=== PATIENT | male | born 1950 | race Caucasian/White ===

== ENCOUNTER 2016-03-29 15:51 | Outpatient (CLI) | payer BC, OTHER | END 2016-03-29 15:52 | disposition home or self-care (01) | DX: Z00.00 Encounter for general adult medical examination without abnormal findings (principal); Z12.5 Encounter for screening for malignant neoplasm of prostate ==

== ENCOUNTER 2016-06-05 10:09 | Outpatient (CLI) | payer BC, OTHER | END 2016-06-05 10:10 | disposition home or self-care (01) | DX: K57.92 Diverticulitis of intestine, part unspecified, without perforation or abscess without bleeding (principal) ==

== ENCOUNTER 2016-11-07 08:00 | Outpatient (CLI) | payer BC, OTHER ==
[2016-11-07 14:04] LABS: BASOPHILS % (AUTO) 0.2 %; EOSINOPHILS % (AUTO) 1.6 %; HCT - HEMATOCRIT 43.1 % (42.0-52.0); HGB - HEMOGLOBIN 14.4 g/dL (14.0-18.0); LYMPHOCYTES % (AUTO) 61.8 %; MEAN CORPUSCULAR HEMOGLOBIN 30.9 pg (27.0-31.0); MEAN CORPUSCULAR HGB CONC 33.5 g/dL (32.0-36.0); MEAN CORPUSCULAR VOLUME 92.3 fL (80.0-94.0); MONOCYTES % (AUTO) 5.5 %; NEUTROPHILS % (AUTO) 30.9 %; RED BLOOD COUNT 4.67 10^6/uL (4.70-6.10); RED CELL DISTRIBUTION WIDTH 13.9 % (12.0-15.0); UNCORRECTED WHITE BLOOD COUNT 15.4 x10^3/uL; WHITE BLOOD COUNT 15.4 x10^3/uL (4.8-10.8)
[2016-11-07 14:19] LABS: BAND NEUTROPHILS % (MANUAL) 0 %
[2016-11-07 14:21] LABS: EOSINOPHILS % (MANUAL) 2 %; LYMPHOCYTES % (MANUAL) 45 %; NEUTROPHILS % (MANUAL) 26 %; TOTAL CELLS COUNTED 100
[2016-11-07 14:22] LABS: NP AUTO DIFFERENTIAL? YES; NP MAN DIFFERENTIAL? NO; PLATELET ESTIMATE, MANUAL NORMAL (130-450,000) (NORMAL); PLATELET MORPHOLOGY NORMAL APPEARANCE (NORMAL)
[2016-11-07 14:27] LABS: ALBUMIN/GLOBULIN RATIO 1.6 (1.0-2.2); BILIRUBIN,TOTAL 0.7 mg/dL (0.2-1.0); CALCIUM 8.7 mg/dL (8.5-10.3); CREATININE 1.3 mg/dL (0.6-1.2); POTASSIUM 3.6 mmol/L (3.5-5.0); TOTAL PROTEIN 6.6 g/dL (6.7-8.2)
== END 2016-11-07 08:01 | disposition home or self-care (01) ==
LOC: LAB.WCP 08:00
PROVIDERS: ATTEND Specialist
DX: C91.10 Chronic lymphocytic leukemia of B-cell type not having achieved remission (principal)
CPT/HCPCS: 36415; 80053; 84443; 85025

== ENCOUNTER 2016-12-27 09:53 | Outpatient (CLI) | payer OTHER ==
[2016-12-28 09:39] LABS: BASOPHILS % (AUTO) 0.4 %; EOSINOPHILS % (AUTO) 1.5 %; HCT - HEMATOCRIT 43.8 % (42.0-52.0); HGB - HEMOGLOBIN 14.6 g/dL (14.0-18.0); LYMPHOCYTES % (AUTO) 68.4 %; MEAN CORPUSCULAR HEMOGLOBIN 31.4 pg (27.0-31.0); MEAN CORPUSCULAR HGB CONC 33.4 g/dL (32.0-36.0); MEAN CORPUSCULAR VOLUME 94.2 fL (80.0-94.0); MEAN PLATELET VOLUME 8.6 fL (7.4-11.4); MONOCYTES % (AUTO) 4.9 %; NEUTROPHILS % (AUTO) 24.8 %; RED BLOOD COUNT 4.65 10^6/uL (4.70-6.10); UNCORRECTED WHITE BLOOD COUNT 17.2 x10^3/uL; WHITE BLOOD COUNT 17.2 x10^3/uL (4.8-10.8)
[2016-12-28 09:41] LABS: BILIRUBIN,TOTAL 0.7 mg/dL (0.2-1.0); CALCIUM 8.7 mg/dL (8.5-10.3); POTASSIUM 4.5 mmol/L (3.5-5.0); TOTAL PROTEIN 6.8 g/dL (6.7-8.2)
[2016-12-28 10:09] LABS: BAND NEUTROPHILS % (MANUAL) 0 %
[2016-12-28 10:11] LABS: EOSINOPHILS % (MANUAL) 1 %; LYMPHOCYTES % (MANUAL) 59 %; NEUTROPHILS % (MANUAL) 36 %; PLATELET ESTIMATE, MANUAL NORMAL (130-450,000) (NORMAL)
[2016-12-28 10:12] LABS: WBC MORPHOLOGY (MULTIPLE) 2+ SMUDGE (NORMAL)
[2016-12-28 10:13] LABS: NP AUTO DIFFERENTIAL? YES; NP MAN DIFFERENTIAL? NO
[2016-12-28 10:38] LABS: ALBUMIN/GLOBULIN RATIO 1.7 (1.0-2.2); CREATININE 1.4 mg/dL (0.6-1.2)
== END 2016-12-27 09:54 | disposition home or self-care (01) ==
LOC: LAB.WCP 09:53
PROVIDERS: ATTEND Specialist
DX: C91.10 Chronic lymphocytic leukemia of B-cell type not having achieved remission (principal)
CPT/HCPCS: 36415; 80053; 85025

== ENCOUNTER 2017-02-21 08:00 | Outpatient (CLI) | payer OTHER | END 2017-02-21 08:01 | disposition home or self-care (01) | LOC: LAB.WCP 08:00 | PROVIDERS: ATTEND Family Medicine | DX: R19.7 Diarrhea, unspecified (principal) | CPT/HCPCS: 81599; 83630; 87045; 87046; 87177; 87209; 87329; 87493 ==

== ENCOUNTER 2017-03-19 14:45 | Outpatient (CLI) | payer OTHER ==
[2017-03-19 19:12] LABS: BASOPHILS % (AUTO) 0.2 %; EOSINOPHILS % (AUTO) 0.9 %; HGB - HEMOGLOBIN 14.5 g/dL (14.0-18.0); LYMPHOCYTES % (AUTO) 69.1 %; MEAN CORPUSCULAR HEMOGLOBIN 30.9 pg (27.0-31.0); MEAN CORPUSCULAR HGB CONC 32.6 g/dL (32.0-36.0); MEAN CORPUSCULAR VOLUME 94.8 fL (80.0-94.0); MEAN PLATELET VOLUME 8.4 fL (7.4-11.4); MONOCYTES % (AUTO) 3.7 %; NEUTROPHILS % (AUTO) 26.1 %; PLT - PLATELET COUNT 215 10^3/uL (130-450); RED BLOOD COUNT 4.69 10^6/uL (4.70-6.10); RED CELL DISTRIBUTION WIDTH 13.7 % (12.0-15.0); WHITE BLOOD COUNT 22.8 x10^3/uL (4.8-10.8)
[2017-03-19 19:31] LABS: ALBUMIN 4.6 g/dL (3.2-5.5); ALBUMIN/GLOBULIN RATIO 1.6 (1.0-2.2); BILIRUBIN,TOTAL 0.7 mg/dL (0.2-1.0); CALCIUM 8.9 mg/dL (8.5-10.3); CREATININE 1.5 mg/dL (0.6-1.2); TOTAL PROTEIN 7.5 g/dL (6.7-8.2)
[2017-03-19 21:57] LABS: ABNORMAL LYMPHS % (MANUAL) 0 %
[2017-03-19 22:02] LABS: BAND NEUTROPHILS % (MANUAL) 2 %; EOSINOPHILS # (MANUAL) 0.7 10^3/uL (0-0.7); LYMPHOCYTES % (MANUAL) 26 %; MONOCYTES # (MANUAL) 0.7 10^3/uL (0.0-1.0); MYELOCYTES % (MANUAL) 2 %; NEUTROPHILS % (MANUAL) 33 %
[2017-03-19 22:03] LABS: PLATELET ESTIMATE, MANUAL NORMAL (130-450,000) (NORMAL); PLATELET MORPHOLOGY NORMAL APPEARANCE (NORMAL); RBC MORPHOLOGY (MULTIPLE) NORMAL APPEARANCE (NORMAL)
== END 2017-03-19 14:46 | disposition home or self-care (01) ==
LOC: LAB.WCP 14:45
PROVIDERS: ATTEND Specialist
DX: C91.10 Chronic lymphocytic leukemia of B-cell type not having achieved remission (principal)
CPT/HCPCS: 36415; 80053; 85025

== ENCOUNTER 2017-07-16 08:00 | Outpatient (CLI) | payer MEDICARE, OTHER ==
[2017-07-16 12:14] LABS: BASOPHILS % (AUTO) 0.3 %; EOSINOPHILS % (AUTO) 0.8 %; HGB - HEMOGLOBIN 13.7 g/dL (14.0-18.0); LYMPHOCYTES % (AUTO) 76.1 %; MEAN CORPUSCULAR HEMOGLOBIN 31.4 pg (27.0-31.0); MEAN CORPUSCULAR HGB CONC 33.6 g/dL (32.0-36.0); MEAN CORPUSCULAR VOLUME 93.3 fL (80.0-94.0); MONOCYTES % (AUTO) 3.3 %; NEUTROPHILS % (AUTO) 19.5 %; PLT - PLATELET COUNT 202 10^3/uL (130-450); RED BLOOD COUNT 4.38 10^6/uL (4.70-6.10); WHITE BLOOD COUNT 27.2 x10^3/uL (4.8-10.8)
[2017-07-16 12:29] LABS: BAND NEUTROPHILS % (MANUAL) 0 %
[2017-07-16 12:46] LABS: ABNORMAL LYMPHS % (MANUAL) 4 %; BASOPHILS # (MANUAL) 0.3 10^3/uL (0-0.1); BASOPHILS % (MANUAL) 1 %; LYMPHOCYTES # (MANUAL) 22.3 10^3/uL (1.5-3.5); LYMPHOCYTES % (MANUAL) 78 %; MONOCYTES # (MANUAL) 1.1 10^3/uL (0.0-1.0); NEUTROPHILS # (MANUAL) 3.5 10^3/uL (1.5-6.6); NEUTROPHILS % (MANUAL) 13 %
[2017-07-16 12:47] LABS: DIFFERENTIAL COMMENT MANUAL DIFFERENTIAL; PLATELET ESTIMATE, MANUAL NORMAL (130-450,000) (NORMAL); PLATELET MORPHOLOGY NORMAL APPEARANCE (NORMAL); RBC MORPHOLOGY (MULTIPLE) NORMAL APPEARANCE (NORMAL)
== END 2017-07-16 08:01 | disposition home or self-care (01) ==
LOC: LAB.WCP 08:00
PROVIDERS: ATTEND Nurse Practitioner Gerontology
DX: C91.10 Chronic lymphocytic leukemia of B-cell type not having achieved remission (principal)
CPT/HCPCS: 36415; 85025

== ENCOUNTER 2017-10-02 09:54 | Outpatient (CLI) | payer MEDICARE, OTHER ==
--- NOTE | 2017-10-02 11:28 | XRAY Report ---
Procedure Date: 10/02/2017 Accession Number: [id number] / [id number] Procedure: XR - Knee 3 View BILAT CPT Code: FULL RESULT: EXAM: Knee 3 View BILAT DATE: 10/02/2017 10:15 AM CLINICAL HISTORY: KNEE PAIN, BILATERAL COMPARISON: None. TECHNIQUE: 3 views each. FINDINGS: RIGHT KNEE: Bones: Normal. No fractures or bone lesions. Joints: Degenerative changes including joint space loss in the medial femoral tibial compartment, mild to moderate. No joint effusion. Soft Tissues: Normal. No soft tissue swelling. LEFT KNEE: Bones: Normal. No fractures or bone lesions. Joints: Degenerative changes including joint space narrowing predominantly in the medial femoral tibial compartment, [id number]. No joint effusion. Soft Tissues: Normal. No soft tissue swelling. IMPRESSION: Bilateral degenerative changes with a medial femorotibial compartment predominant pattern. Mild to moderate. RADIA
== END 2017-10-02 09:55 | disposition home or self-care (01) ==
LOC: DI 09:54
PROVIDERS: ATTEND Family Medicine
DX: M17.0 Bilateral primary osteoarthritis of knee (principal)

== ENCOUNTER 2017-12-23 10:03 | Outpatient (CLI) | payer MEDICARE, OTHER ==
[2017-12-23 14:13] LABS: BASOPHILS % (AUTO) 0.2 %; EOSINOPHILS % (AUTO) 0.8 %; HGB - HEMOGLOBIN 14.7 g/dL (14.0-18.0); LYMPHOCYTES % (AUTO) 81.5 %; MEAN CORPUSCULAR HEMOGLOBIN 31.7 pg (27.0-31.0); MEAN CORPUSCULAR HGB CONC 33.7 g/dL (32.0-36.0); MEAN CORPUSCULAR VOLUME 94.3 fL (80.0-94.0); MONOCYTES % (AUTO) 2.8 %; NEUTROPHILS % (AUTO) 14.7 %; PLT - PLATELET COUNT 192 10^3/uL (130-450); RED BLOOD COUNT 4.62 10^6/uL (4.70-6.10); RED CELL DISTRIBUTION WIDTH 13.9 % (12.0-15.0); WHITE BLOOD COUNT 34.7 x10^3/uL (4.8-10.8)
[2017-12-23 14:20] LABS: ABNORMAL LYMPHS % (MANUAL) 0 %
[2017-12-23 15:21] LABS: ALBUMIN 4.3 g/dL (3.2-5.5); ALBUMIN/GLOBULIN RATIO 1.6 (1.0-2.2); BILIRUBIN,TOTAL 0.2 mg/dL (0.2-1.0); CREATININE 1.5 mg/dL (0.6-1.2)
[2017-12-23 15:41] LABS: BAND NEUTROPHILS % (MANUAL) 1 %; DIFFERENTIAL COMMENT MANUAL DIFFERENTIAL; LYMPHOCYTES # (MANUAL) 28.5 10^3/uL (1.5-3.5); LYMPHOCYTES % (MANUAL) 71 %; MONOCYTES # (MANUAL) 0.3 10^3/uL (0.0-1.0); NEUTROPHILS # (MANUAL) 5.9 10^3/uL (1.5-6.6); NEUTROPHILS % (MANUAL) 16 %; PLATELET ESTIMATE, MANUAL NORMAL (130-450,000) (NORMAL); PLATELET MORPHOLOGY NORMAL APPEARANCE (NORMAL); RBC MORPHOLOGY (MULTIPLE) NORMAL APPEARANCE (NORMAL)
== END 2017-12-23 10:04 | disposition home or self-care (01) ==
LOC: LAB.WCP 10:03
PROVIDERS: ATTEND Internal Medicine Hematology & Oncology
DX: C91.10 Chronic lymphocytic leukemia of B-cell type not having achieved remission (principal)
CPT/HCPCS: 36415; 80053; 83615; 85025

== ENCOUNTER 2018-04-10 15:03 | Outpatient (CLI) | payer MEDICARE, OTHER ==
[2018-04-10 18:47] LABS: BASOPHILS % (AUTO) 0.1 %; EOSINOPHILS % (AUTO) 0.7 %; HGB - HEMOGLOBIN 15.2 g/dL (14.0-18.0); LYMPHOCYTES % (AUTO) 82.8 %; MEAN CORPUSCULAR HEMOGLOBIN 30.8 pg (27.0-31.0); MEAN CORPUSCULAR HGB CONC 32.2 g/dL (32.0-36.0); MEAN CORPUSCULAR VOLUME 95.5 fL (80.0-94.0); MEAN PLATELET VOLUME 8.3 fL (7.4-11.4); MONOCYTES % (AUTO) 2.8 %; NEUTROPHILS % (AUTO) 13.6 %; PLT - PLATELET COUNT 211 10^3/uL (130-450); RED BLOOD COUNT 4.95 10^6/uL (4.70-6.10); RED CELL DISTRIBUTION WIDTH 13.4 % (12.0-15.0)
[2018-04-10 19:04] LABS: ALBUMIN 4.1 g/dL (3.2-5.5); ALBUMIN/GLOBULIN RATIO 1.5 (1.0-2.2); BILIRUBIN,TOTAL 0.7 mg/dL (0.2-1.0); CALCIUM 9.1 mg/dL (8.5-10.3); CREATININE 1.3 mg/dL (0.6-1.2); TOTAL PROTEIN 6.9 g/dL (6.7-8.2)
[2018-04-10 20:43] LABS: ABNORMAL LYMPHS % (MANUAL) 0 %; BAND NEUTROPHILS % (MANUAL) 0 %
[2018-04-10 20:44] LABS: DIFFERENTIAL COMMENT MANUAL DIFFERENTIAL; LYMPHOCYTES # (MANUAL) 32.1 10^3/uL (1.5-3.5); LYMPHOCYTES % (MANUAL) 83 %; MONOCYTES # (MANUAL) 0.8 10^3/uL (0.0-1.0); NEUTROPHILS # (MANUAL) 5.8 10^3/uL (1.5-6.6); NEUTROPHILS % (MANUAL) 15 %; PLATELET ESTIMATE, MANUAL NORMAL (130-450,000) (NORMAL); PLATELET MORPHOLOGY NORMAL APPEARANCE (NORMAL); RBC MORPHOLOGY (MULTIPLE) NORMAL APPEARANCE (NORMAL)
[2018-04-11 09:57] LABS: WHITE BLOOD COUNT 38.7 x10^3/uL (4.8-10.8)
== END 2018-04-10 23:59 | disposition home or self-care (01) ==
LOC: LAB.WCP 15:03
DX: C91.10 Chronic lymphocytic leukemia of B-cell type not having achieved remission (principal)
CPT/HCPCS: 36415; 80053; 83615; 85025

== ENCOUNTER 2019-01-05 17:16 | Outpatient (CLI) | payer OTHER, MEDICARE ==
--- NOTE | 2019-01-06 09:53 | MRI Report ---
Reason: TRIGGER LITTLE FINGER OF RT HAND, HAND PAIN Procedure Date: 01/05/2019 Accession Number: [id number] / [id number] Procedure: MRI - Hand RT W/O CPT Code: Final Report FULL RESULT: EXAM: RIGHT HAND FIFTH DIGIT MR WITHOUT CONTRAST EXAM DATE: 01/05/2019 06:09 PM. CLINICAL HISTORY: Trigger finger of the right hand little finger. Hand pain. COMPARISON: None. TECHNIQUE: Multiplanar, multisequence T1-weighted and fluid-sensitive sequences of the finger without contrast. Other: None. FINDINGS: Bones: No fractures or subluxations. No marrow edema. No bone lesions. Cartilage: The articular cartilage is unremarkable. Ligaments: The radial and ulnar collateral ligaments are intact. Tendons: The flexor and extensor tendons are unremarkable. The visualized pulleys are intact. Musculature: No edema or fatty atrophy. Other: No joint effusions or capsular rupture. The subcutaneous tissues are unremarkable. IMPRESSION: No MRI abnormalities in the finger. RADIA
== END 2019-01-05 17:17 | disposition home or self-care (01) ==
LOC: DI 17:16
PROVIDERS: ATTEND Orthopaedic Surgery
DX: M65.351 Trigger finger, right little finger (principal)

== ENCOUNTER 2020-05-30 07:00 | Outpatient (CLI) | payer MEDICARE ==
--- OUTSIDE RECORDS SUMMARY | 2020-06-07 21:57 | EXTERNAL MEDICAL SUMMARY RPT | Continuity of Care Document ---
:1950 Demographics Phone Unavailable Preferred Language German Marital Status Unknown Shinto Affiliation Unknown Race Unknown Ethnic Group Unknown Author Organization [place] Address [address] [phone] Phone Care Team Providers Name Role Phone Scheidt Unavailable Unavailable Problems date description facility [id number] Chronic lymphocytic leukemia of B-cell type not having [facility] [id number] Chronic lymphocytic leukemia of B-cell type not having [facility] Social History date description facility [id number]
== END 2020-05-30 23:59 | disposition home or self-care (01) ==
LOC: LAB.N 07:00
PROVIDERS: ATTEND Family Medicine
DX: R05 Cough (principal); Z20.822 Contact with and (suspected) exposure to COVID-19
CPT/HCPCS: 87275; 87276; U0004

== ENCOUNTER 2020-06-10 08:00 | Outpatient (CLI) | payer MEDICARE ==
[2020-06-10 11:53] LABS: EOSINOPHILS % (AUTO) 0.1 %; HCT - HEMATOCRIT 44.5 % (42.0-52.0); HGB - HEMOGLOBIN 13.2 g/dL (14.0-18.0); LYMPHOCYTES % (AUTO) 94.4 %; MEAN CORPUSCULAR HGB CONC 29.7 g/dL (32.0-36.0); MEAN CORPUSCULAR VOLUME 104.5 fL (80.0-94.0); MEAN PLATELET VOLUME 9.9 fL (7.4-11.4); MONOCYTES % (AUTO) 3.3 %; PLT - PLATELET COUNT 192 10^3/uL (130-450); RED BLOOD COUNT 4.26 10^6/uL (4.70-6.10); RED CELL DISTRIBUTION WIDTH 14.5 % (12.0-15.0)
[2020-06-10 12:13] LABS: WHITE BLOOD COUNT 153.5 x10^3/uL (4.8-10.8)
[2020-06-10 12:15] LABS: ABNORMAL LYMPHS % (MANUAL) 0 %; BAND NEUTROPHILS % (MANUAL) 0 %
[2020-06-10 12:29] LABS: LYMPHOCYTES # (MANUAL) 141.2 10^3/uL (1.5-3.5); LYMPHOCYTES % (MANUAL) 92 %; MONOCYTES # (MANUAL) 4.6 10^3/uL (0.0-1.0); NEUTROPHILS # (MANUAL) 7.7 10^3/uL (1.5-6.6)
[2020-06-10 12:30] LABS: DIFFERENTIAL COMMENT MANUAL DIFFERENTIAL; PLATELET ESTIMATE, MANUAL NORMAL (130-450,000) (NORMAL); PLATELET MORPHOLOGY NORMAL APPEARANCE (NORMAL); RBC MORPHOLOGY (MULTIPLE) 1+ MACROCYTOSIS (NORMAL)
[2020-06-10 13:26] LABS: ALBUMIN 4.2 g/dL (3.2-5.5); ALBUMIN/GLOBULIN RATIO 1.9 (1.0-2.2); ALKALINE PHOSPHATASE 110 IU/L (42-121); ALT ALANINE AMINOTRANSFERASE 24 IU/L (10-60); AST ASPARTATE AMINOTRANSFERASE 24 IU/L (10-42); BILIRUBIN,TOTAL 0.5 mg/dL (0.2-1.0); BUN - BLOOD UREA NITROGEN 23 mg/dL (6-20); CALCIUM 8.9 mg/dL (8.5-10.3); CARBON DIOXIDE - CO2 27 mmol/L (21-32); CHLORIDE 108 mmol/L (101-111); CHOL/HDL RATIO 5.2 (<5.0); CHOLESTEROL 151 mg/dL; CREATININE 1.5 mg/dL (0.6-1.2); GFR - MDRD 47 (>89); GLUCOSE 97 mg/dL (70-100); HDL CHOLESTEROL 29 mg/dL; LDL CHOLESTEROL,CALCULATED 98 mg/dL; LDL/HDL RATIO 3.4 (<3.6); POTASSIUM 4.2 mmol/L (3.5-5.0); SODIUM 143 mmol/L (135-145); TOTAL PROTEIN 6.4 g/dL (6.7-8.2); TRIGLYCERIDES 119 mg/dL; URIC ACID 8.7 mg/dL (2.6-7.2); VLDL CHOLESTEROL 24 mg/dL
== END 2020-06-10 23:59 | disposition home or self-care (01) ==
LOC: LAB.WCP 08:00
PROVIDERS: ATTEND Family Medicine
DX: I10 Essential (primary) hypertension (principal); N41.9 Inflammatory disease of prostate, unspecified; M10.9 Gout, unspecified; C91.00 Acute lymphoblastic leukemia not having achieved remission
CPT/HCPCS: 36415; 80053; 80061; 83721; 84153; 84550; 85025

== ENCOUNTER 2020-11-03 13:50 | Outpatient (CLI) | payer MEDICARE | END 2020-11-03 13:51 | disposition home or self-care (01) | LOC: COV 13:50 | PROVIDERS: ATTEND Family Medicine | DX: Z20.822 Contact with and (suspected) exposure to COVID-19 (principal) ==

== ENCOUNTER 2021-08-07 08:00 | Outpatient (CLI) | payer MEDICARE ==
--- NOTE | 2021-08-08 15:19 | XRAY Report ---
PROCEDURE: Chest 2 View X-Ray INDICATIONS: PERSISTENT COUGH TECHNIQUE: 2 view(s) of the chest. COMPARISON: None. FINDINGS: Surgical changes and devices: None. Lungs and pleura: No pleural effusions or pneumothorax. Lungs are clear. Mediastinum: Mediastinal contours are normal. Heart size is normal. Bones and chest wall: No suspicious bony abnormalities. Soft tissues appear unremarkable. IMPRESSION: No acute cardiopulmonary findings. Reviewed by: Lisa Armenta MD on 08/08/2021 3:17 PM PDT Approved by: Lisa Armenta MD on 08/08/2021 3:17 PM PDT Station ID: [id number]
== END 2021-08-07 23:59 | disposition home or self-care (01) ==
LOC: DI.N 08:00
PROVIDERS: ATTEND Physician Assistant
DX: R05.2 Subacute cough (principal)

== ENCOUNTER 2021-12-18 08:08 | Outpatient (CLI) | payer MEDICARE ==
--- NOTE | 2021-12-18 17:25 | XRAY Report ---
PROCEDURE: Ribs w/PA Chest LT INDICATIONS: RIB PAIN, LEFT SIDED TECHNIQUE: 3 views of the left ribs were acquired, along with a single view chest. COMPARISON: 08/07/2021 chest films FINDINGS: Surgical changes and devices: None. Bones and chest wall: No fractures or dislocations. No suspicious bony lesions. Overlying soft tis sues appear unremarkable. Lungs and pleura: No pleural effusions or pneumothorax. Lungs appear clear. Mediastinum: Mediastinal contours appear normal. Heart size is normal. IMPRESSION: No evidence of displaced left rib fracture. No evidence of acute pulmonary process. Reviewed by: Johnnie Sheehan MD on 12/18/2021 5:23 PM PDT Approved by: Johnnie Sheehan MD on 12/18/2021 5:23 PM PDT Station ID: [id number]
== END 2021-12-18 08:09 | disposition home or self-care (01) ==
LOC: DI.N 08:08
PROVIDERS: ATTEND Internal Medicine
DX: R07.81 Pleurodynia (principal); I10 Essential (primary) hypertension; Z13.220 Encounter for screening for lipoid disorders; F32.A Depression, unspecified; M10.9 Gout, unspecified
CPT/HCPCS: 36415; 80053; 80061; 83721; 84443; 84550; 85025

== ENCOUNTER 2023-05-14 15:39 | Outpatient (CLI) | payer MEDICARE ==
--- NOTE | 2023-05-14 16:05 | Sleep Patient Instructions ---
Sleep Center Visit Summary - Patient Visit Information Reason for Visit: Initial consult for evaluation of sleep disordered breathing and other sleep issues. - Patient Instructions Instructions Attached: Sleep Study Additional Instructions: You will be completing a sleep study, either an in-lab polysomnography (PSG) or home sleep study (HST). You will follow-up in the sleep care office after the sleep study is completed to hear the results and talk about therapy, if needed. You will be called by our office staff to schedule this appointment, but you may contact us with any questions. - Clinic Information Contact: Merged with [facility] [address] [place] [address] [email or web address] T: [phone]
--- NOTE | 2023-05-14 16:13 | SLEEP CARE CONSULTATION ---
Information from patient questionnaire entered by Krystyna Mcleod. I have reviewed and concur with the information entered by Krystyna Mcleod. This document represents the service I personally performed and the decisions made by me, Delores Kenny ARNP. History of Present Illness Service Date and Time: 05/14/2023 1539 Reason for Visit: New patient Chief Complaint: reports: Snoring Date of Onset: for long time Usual bedtime: 9PM Time it takes to fall asleep: 5-10 minutes Snores at night: Yes Observed to quit breathing while asleep: No Sleeps alone due to snoring: Yes Number of times waking at night: 1 Reasons for waking at night: reports: Snoring, Bathroom. denies: Choking, Gasping for air Toss, Turn, or Twitch while sleeping: Yes Recalls having dreams: Yes Usually gets out of bed at: 6AM Feels refreshed in the morning: Yes Morning headache: No Sleepy or fatigued during the day: Yes Ever fallen asleep while driving: No Takes day naps: No Dreams during day naps: No Prior sleep studies: Yes Year and Where: 1995 [place], formerly [facility] Additional HPI information: I had the pleasure of seeing SLICK ASHLEY today regarding the possibility of him having a sleep disorder. His current complaint is snoring. He says his complains of snoring that disrupts her sleep. She will seep separate because of the snoring as well. She has never told him he stopped breathing at night. He says he wakes up feeling rested overall. He does have some fatigue during the daytime but he does have a diagnosis of CLL. He has been more tired since he has been dealing with cancer and its treatments. 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 He goes to sleep without a problem and only wakes up once to use the bathroom during the night. 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 Patient is and lives in [place]. Have you smoked in the past 12 months: No Alcohol use: Yes Alcohol amount and frequency: SOCIAL Caffeine use: Yes Caffeine amount and frequency: 12OZ Family History Family history of sleep disordered breathing: Yes Family Hx Sleep Apnea: Father: Snoring, Grandparent: Snoring Allergies and Home Medications Known drug allergies: Yes (as listed) Drug allergies reviewed: Yes Home medication list reviewed: Yes (as listed) Allergy and home medication list: Allergies Penicillins Allergy (Severe, Verified 05/10/23 14:01) anaph. anaphylaxis. codeine Allergy (Verified 05/10/23 14:01) Nausea Home Medications Medication Instructions Recorded Confirmed Last Taken Type Tamsulosin [Flomax] See Rx Instructions .ROUTE .COMPLEX 09/08/13 05/14/23 09/07/13 20:00 History Losartan Potassium See Rx Instructions .ROUTE .COMPLEX 05/14/23 05/14/23 Unknown History Zanubrutinib [Brukinsa] See Rx Instructions .ROUTE .COMPLEX 05/14/23 05/14/23 Unknown History allopurinoL [Zyloprim] See Rx Instructions .ROUTE .COMPLEX 05/14/23 05/14/23 Unknown History buPROPion HCL [Wellbutrin Xl] See Rx Instructions .ROUTE .COMPLEX 05/14/23 05/14/23 Unknown History Review of Systems Weight gain over past 5 years: 10-15 Cardiovascular: reports: high blood pressure Gastrointestinal: reports: heartburn Urinary: reports: impotence Neurological: denies: headaches Psychiatric: reports: depression Ear/Nose/Throat: reports: tonsillectomy (took uvula too), wisdom teeth removed Endocrine: denies: thyroid disease Musculoskeletal: reports: joint pain, muscle pain or cramping Physical Exam Vital signs obtained and entered by: KRYSTYNA Willis MA Blood Pressure: 139/88 (RIGHT ARM) Cuff size: regular Heart Rate: 79 O2 Saturation: 95 Height: 5 ft 8 in Weight: 227 lb 6.4 oz Body Mass Index: 34.5 BMI Classification: Obese Neck circumference: 18 Mouth and throat: narrow oropharynx Soft palate: long Hard palate: normal Uvula visualization: 0% Mallampati Class IV Tongue: enlarged in size with teeth palma on lateral edges Tonsils: absent bilaterally Heart: regular rate and rhythm Lungs: clear bilaterally Impression and Plan 1. Suspected Obstructive Sleep Apnea-Hypopnea Syndrome, as suggested by a history of loud and irregular snoring. He has a history of hypertension, depression and gastric reflux. Narrow oropharynx and obesity are common predisposing factors for obstructive sleep apnea-hypopnea syndrome. I recommend proceeding to polysomnography to confirm the diagnosis and to assess severity. If the patient has significant sleep disordered breathing, a manual CPAP titration study will also be performed to find the optimal treatment pressure. I informed the patient of what the sleep studies involve and after some discussion, obtained agreement to proceed. The pathophysiology of obstructive sleep apnea-hypopnea syndrome was discussed with the patient and health risks of cardiovascular and cerebrovascular disease if not treated. Risks of drowsy driving discussed in detail and patient advised to avoid long distance driving and to pulley worker at the first sign of drowsiness. Patient agreed to plan. * Schedule polysomnography * Avoid long distance driving or driving when feeling sleepy. * Avoid alcohol, sedative and muscle relaxant around bedtime. * Attempt to lose weight. * Review instructions provided by trained office staff on how to prepare for the sleep study. * Return for follow-up after sleep study completed. Counseling Topics: Weight loss health impact Plan: PSG Visit Type: In Office Time Spent with Patient (minutes): 30 Provider Statement: I spent 100% of the Face to Face Visit with the patient with greater than 50% spent counseling the patient and coordination of care.
[2023-05-14 16:22] VITALS: BP 139/88; O2SAT 95
== END 2023-05-14 15:40 | disposition home or self-care (01) ==
LOC: SC 15:39
PROVIDERS: ATTEND Nurse Practitioner Family
DX: R06.83 Snoring (principal); E66.9 Obesity, unspecified; Z68.34 Body mass index [BMI] 34.0-34.9, adult
CPT/HCPCS: 99203; G0463; 99212

== ENCOUNTER 2023-05-29 20:23 | Outpatient (CLI) | payer MEDICARE | END 2023-05-29 20:24 | disposition home or self-care (01) | LOC: SC 20:23 | PROVIDERS: ATTEND Nurse Practitioner Family | DX: G47.33 Obstructive sleep apnea (adult) (pediatric) (principal) | CPT/HCPCS: 95810 ==

== ENCOUNTER 2023-06-18 09:26 | Outpatient (CLI) | payer MEDICARE ==
--- NOTE | 2023-06-18 09:52 | Sleep Patient Instructions ---
Sleep Center Visit Summary - Patient Visit Information Reason for Visit: Sleep study follow-up - Patient Instructions Additional Instructions: You will be completing a titration sleep study in our sleep lab where you will be sleeping with the CPAP machine on and we will be adjusting your pressures to find your optimal pressure settings. Once we have your results back, we will call you and schedule a follow up to go over the results, you may contact us with any questions or issues as needed. Please call office to schedule a follow up appointment in the sleep care office after titration study. - Clinic Information Contact: [facility] [address] [place] [id number] [email or web address] T: [phone]
--- NOTE | 2023-06-18 09:56 | SLEEP CARE CONSULTATION ---
Information from patient questionnaire entered by Martha Mcleod. I have reviewed and concur with the information entered by Martha Mcleod. This document represents the service I personally performed and the decisions made by , Delores Kenny ARNP. History of Present Illness Service Date and Time: 06/18/2023925 Initial [place] Sleepiness Scale score: 9 (04/29/23) Current [place] Sleepiness Scale score: 10 (06/18/23) Additional HPI information: SLICK ASHLEY returns for follow up and results of the recently performed polysomnography. The sleep study showed very severe obstructive sleep apnea with an average AHI of 73.7 and acosta oxygen saturation of 77%. I explained the pathophysiology behind obstructive sleep apnea. We then spent quite a bit of time discussing different treatment options. For mild obstructive sleep apnea, surgery and oral appliance are alternatives to nasal CPAP therapy but in moderate or severe cases, nasal CPAP is the most effective and reliable treatment. Because apnea is primarily in supine position, then positional management therapy could be effective. Methods discussed such as positioning with pillows, using a T-shirt with tennis balls in the back, and shown commercial products that have a pillow format on back to prevent supine sleep. I reviewed the impact of weight changes on sleep apnea and strongly recommended losing weight. After some discussion, the patient opted to go with the nasal CPAP therapy. A manual titration study will be ordered to find optimal pressure with office adjustments. Patient counseled not drink alcohol less than 4 hours before bedtime as it can increase snoring and apnea. Patient was cautioned about risks of drowsy driving until sleepiness symptoms resolve. Patient denies drowsy driving. Sleep Study - Results Type of Sleep Study: Polysomnography (COMPLETED 05/29/23) Prior sleep studies: Yes Year and Where: 1995 [place], negative Polysomnography/Home Sleep Study results: IMPRESSION: The quality of the study is good. The patient had normal sleep efficiency. The sleep architecture was abnormal for sleep fragmentation and reduced amount of time spent in slow wave sleep (N3). Respiratory monitoring showed very severe obstructive sleep apnea-hypopnea (AHI = 73.7) associated with frequent arousals, oxyhemoglobin desaturation and moderate hypoxia (acosta oxygen saturation of 77%). Baseline oxygen saturation was normal. The respiratory events occurred mainly during supine sleep (supine AHI = 82.7; non-supine = 27.13). Snore was light to loud in intensity. There was no significant periodic leg movement of sleep. Cardiac rhythm was normal sinus rhythm with occasional premature atrial contractions. No abnormal behavior (parasomnia) observed during the night Allergies and Home Medications Known drug allergies: Yes (as listed) Drug allergies reviewed: Yes Home medication list reviewed: Yes (no changes) Allergy and home medication list: Allergies Penicillins Allergy (Severe, Verified 06/14/23 15:08) anaph. anaphylaxis. codeine Allergy (Verified 06/14/23 15:08) Nausea lisinopril Allergy (Verified 06/14/23 15:08) Review of Systems Review of systems same as previous: Yes (NO CHANGE) Physical Exam Vital signs obtained and entered by: MARTHA Willis MA Blood Pressure: 131/82 (RIGHT ARM) Cuff size: regular Heart Rate: 77 O2 Saturation: 96 Height: 5 ft 8 in Weight: 224 lb 9.6 oz Weight change since last visit: 3 lb loss Body Mass Index: 34.1 BMI Classification: Obese Impression and Plan 1. Obstructive Sleep Apnea-Hypopnea Syndrome, very severe, with lowest oxygen saturation of 77%. Positive pressure therapy could benefit hypertension, depression and gastric reflux. As mentioned above, the patient will be started on nasal autoCPAP therapy. A manual titration study will be completed to find optimal treatment pressure with office adjustments. Compliance guidelines also reviewed. A copy of compliance guidelines will be given for reference at check out. Because the apnea is more severe supine, I instructed to avoid sleeping supine using pillow positioning until able to start CPAP use. 2. Hypoxemia, moderate, with a acosta oxygen saturation of 77% and 40 minutes spent under 90%. The baseline oxygen saturation was normal with an average oxygen saturation of 92%. 3. Obesity, unspecified. Currently patients BMI is 34.1. He has lost 3 lbs. Obesity increases the risk of apnea, CPAP pressure requirements and overall health risks especially cardiovascular and diabetes. Thus patient is advised to lose weight. * Titration study * Attempt to lose weight. * Avoid alcohol consumption near bedtime. * Avoid supine sleep until using CPAP. * The patient is again cautioned about driving until sleepiness completely resolves. * Return after titration study to be set up with PAP therapy. Counseling Topics: Sleeping position, Weight loss health impact Plan: Titration study and followup Visit Type: In Office Time Spent with Patient (minutes): 20 Provider Statement: I spent 100% of the Face to Face Visit with the patient with greater than 50% spent counseling the patient and coordination of care.
[2023-06-18 10:05] VITALS: BP 131/82; O2SAT 96
== END 2023-06-18 09:27 | disposition home or self-care (01) ==
LOC: SC 09:26
PROVIDERS: ATTEND Nurse Practitioner Family
DX: G47.33 Obstructive sleep apnea (adult) (pediatric) (principal); R09.02 Hypoxemia; E66.9 Obesity, unspecified; Z68.34 Body mass index [BMI] 34.0-34.9, adult
CPT/HCPCS: 99213; G0463; 99212

== ENCOUNTER 2023-07-31 20:34 | Outpatient (CLI) | payer MEDICARE | END 2023-07-31 20:35 | disposition home or self-care (01) | LOC: SC 20:34 | PROVIDERS: ATTEND Nurse Practitioner Family | DX: G47.33 Obstructive sleep apnea (adult) (pediatric) (principal); I10 Essential (primary) hypertension | CPT/HCPCS: 95811 ==

== ENCOUNTER 2023-08-03 08:00 | Outpatient (CLI) | payer MEDICARE | END 2023-08-03 23:59 | disposition home or self-care (01) | LOC: LAB.N 08:00 | PROVIDERS: ATTEND Physician Assistant | DX: J06.9 Acute upper respiratory infection, unspecified (principal) ==

== ENCOUNTER 2023-10-29 16:02 | Outpatient (CLI) | payer MEDICARE ==
--- NOTE | 2023-10-29 16:41 | Sleep Patient Instructions ---
Sleep Center Visit Summary - Patient Visit Information Reason for Visit: First compliance follow-up for PAP therapy - Patient Instructions Additional Instructions: You were here for follow up of CPAP therapy. You will be continued on CPAP therapy with pressure at 10-12 cmH2O. Please let us know if the pressure change is uncomfortable and we can make further adjustments of the pressure. You should follow up with sleep care in 1-2 months. You may contact us sooner for any questions or concerns. - Clinic Information Contact: [facility] [address] [place] [address] [email or web address] T: [phone]
--- NOTE | 2023-10-29 16:45 | SLEEP CARE CONSULTATION ---
Information from patient questionnaire entered by Toni Martínez. I have reviewed and concur with the information entered by Toni Martínez. This document represents the service I personally performed and the decisions made by , Delores Kenny ARNP. History of Present Illness Service Date and Time: 10/29/2023 1602 Previous diagnosis: Very Severe, Obstructive Sleep Apnea-Hypopnea Syndrome AHI: 73.7 (05/29/23) Reason for follow up: first compliance (Set up 08/26) Equipment obtained from: Other ([facility]; getting supplies) Mask style: Full face Mask brand: [employer] (Vitera, medium cushion) Backup mask available: No Prior sleep studies: Yes Year and Where: 1995, [facility] Type of Sleep Study: Polysomnography (COMPLETED 05/29/23) HPI additional information: SLICK ASHLEY was diagnosed to have very severe, AHI 73.7, obstructive sleep apnea-hypopnea syndrome and returned today for CPAP therapy first compliance follow-up. Sleep Study - Results Type of Sleep Study: Polysomnography (COMPLETED 05/29/23) Prior sleep studies: Yes Year and Where: 1995, negative CPAP Compliance Data - Data Reviewed with Patient Average duration of nightly device use: 6 h 42 min Compliance rate %: 90 (30 days used; 09/25/23-10/27/23) Current pressure setting (cmH2O): 5-15 (median 6.8, avg 10.4, max 11.9) Average residual AHI: 4.1 Central apnea: 0.2 Obstructive apnea: 1.7 Hypopnea: 1 Average large leak: 17.5 L/min Subjective Missed days of use due to: reports: illness Patient concerns: reports: dry mouth, nose, throat (occasional oral venting). denies: aerophagia, mask discomfort, air blowing in eyes, mask leak noise, condensation in mask/hose, nasal congestion, epistaxis Observed to snore while using device: No Current pressure setting perceived as: comfortable On therapy, patient: reports: sleeping better, awakening more refreshed, being more awake and alert during the day, more rested overall. denies: drowsiness while driving Initial [place] Sleepiness Scale score: 9 (04/29/23) Current [place] Sleepiness Scale score: 6 (10/29/23) Allergies and Home Medications Known drug allergies: Yes (as listed) Drug allergies reviewed: Yes Home medication list reviewed: Yes (no changes) Allergy and home medication list: Allergies Penicillins Allergy (Severe anaph. anaphylaxis. codeine Allergy Nausea lisinopril Allergy Review of Systems Review of systems same as previous: Yes (no changes) Physical Exam Vital signs obtained and entered by: Delores Sorto NP Blood Pressure: 158/88 Cuff size: long (right arm) Heart Rate: 58 O2 Saturation: 97 Height: 5 ft 8 in Weight: 219 lb Body Mass Index: 33.3 BMI Classification: Obese Impression and Plan 1. Obstructive Sleep Apnea-Hypopnea Syndrome, very severe, with good treatment compliance and good apnea control. On CPAP therapy, the patient has better sleep quality and is more rested overall. He returns to the office to review his CPAP therapy. He was set up for a titration study but was unable to complete it due to severe nasal congestion restricting his ability to breathe through his nose for the titration study. He was set up for an APAP trial and has been using his CPAP. The patients pressure will be changed to autoCPAP 10-12 cmH20 to reflect pressure being used. Patient advised to contact me if pressure change is uncomfortable so that it can be adjusted. Goals for apnea control discussed.Patient's apnea severity and rationale for treatment to reduce apnea, improve sleep quality and reduce cardiovascular and cerebrovascular events was reviewed. I also reviewed the benefit of consistent device use of CPAP for hypertension, depression and gastric reflux. 2. Obesity, unspecified. Currently patients BMI is 33.3. Obesity increases the risk of apnea, CPAP pressure requirements and overall health risks especially cardiovascular and diabetes. Thus patient is advised to lose weight. * Change auto CPAP pressure to 10-12 cmH2O * Notify me if snoring with mask or feeling that the pressure is too much or too little * Attempt to lose weight * Call this office if any problems using CPAP * Return for follow up in 1-2 months, or sooner if concerns arise Adjust device pressure to (cmH2O): 10-12 Counseling Topics: Spare mask, Weight loss health impact Follow up with Sleep Care in: 1-2 months Visit Type: In Office Time Spent with Patient (minutes): 21 Provider Statement: I spent 100% of the Face to Face Visit with the patient with greater than 50% spent counseling the patient and coordination of care.
[2023-10-29 16:46] VITALS: BP 158/88; O2SAT 97
== END 2023-10-29 16:03 | disposition home or self-care (01) ==
LOC: SC 16:02
PROVIDERS: ATTEND Nurse Practitioner Family
DX: G47.33 Obstructive sleep apnea (adult) (pediatric) (principal); E66.9 Obesity, unspecified; Z68.33 Body mass index [BMI] 33.0-33.9, adult
CPT/HCPCS: 99213; G0463; 99212